=== PATIENT | female | born 1940 ===

== ENCOUNTER 2017-09-02 09:48 | Outpatient (CLI) | payer MEDICARE ==
--- NOTE | 2017-09-02 13:20 | Mammography Report ---
BILATERAL DIGITAL SCREENING MAMMOGRAM with CAD : 09/02/17 09:48:00 CLINICAL: Routine screening. COMPARISON:09/28/14 FINDINGS: The breasts are heterogeneously dense, which may obscure small masses.Bilateral scattered benign calcifications. No mass, architectural distortion or suspicious calcifications. IMPRESSION: No mammographic evidence of malignancy. BI-RADS CATEGORY: 2 -- Benign RECOMMENDATION: Routine mammographic screening in one year.
== END 2017-09-02 09:49 | disposition home or self-care (01) ==
LOC: SPVWC 09:48
PROVIDERS: ATTEND Family Medicine
DX: Z12.31 Encounter for screening mammogram for malignant neoplasm of breast (principal)
CPT/HCPCS: 77067